=== PATIENT | female | born 1950 | race African-American/Black ===

== ENCOUNTER 2021-08-18 05:31 | Observation (INO) | payer OTHER ==
[2021-08-12 10:17] LABS: Absolute Lymphocytes (CBC) 2.3 K/uL (0.7-4.9); Hematocrit 39.8 % (36.0-45.0); Lymphocytes % 34.9 % (15.3-44.8); MPV 8.8 fL (7.6-11.3); RBC Red Blood Cell Count 4.78 M/uL (3.86-4.86)
[2021-08-12 10:20] LABS: Urine Appearance CLOUDY (Clear); Urine Bilirubin NEGATIVE (Negative); Urine Blood NEGATIVE (Negative); Urine Color YELLOW (Yellow); Urine Glucose NEGATIVE (Negative); Urine Microscopic Reflex ORDER UMIC; Urine Protein NEGATIVE (Negative); Urine Specific Gravity 1.015 (1.005-1.030)
[2021-08-12 10:35] LABS: Albumin 3.9 g/dL (3.4-5.0); Bilirubin Total 0.5 mg/dL (0.2-1.0); Potassium 3.1 mmol/L (3.5-5.1); Protein, Total 8.5 g/dL (6.4-8.2)
[2021-08-12 10:37] LABS: Protime INR 0.97
--- NOTE | 2021-08-12 10:42 | RAD REPORT ---
EXAM DESCRIPTION: Renaldo Hernandez (2 Views)08/12/2021 10:17 am CLINICAL HISTORY: Preop for hip surgery COMPARISON: None FINDINGS: The lungs appear clear of acute infiltrate. The heart is normal size IMPRESSION: No acute abnormalities displayed
[2021-08-12 10:47] LABS: Urine Bacteria 20-50 /HPF (<20); Urine RBC <5 /HPF (NONE SEEN)
[2021-08-18] MEDS ORDERED: CLINDAMYCIN 900MG/D5W 900 MG/50 ML IVPB IV ONE (05:55)
[2021-08-18] MEDS ORDERED: Ringers Lactate 1,000 ML IV ONE (05:55)
[2021-08-18] MEDS ORDERED: BUPIVACAINE 0.75% (PF) 2 ML SP ONE (06:20)
[2021-08-18] MEDS ORDERED: HYDROMORPHONE HCL 1 MG/ML INJ ONE (06:21)
[2021-08-18] MEDS ORDERED: FENTANYL CITR 100 MCG/2 ML ONE (06:24)
[2021-08-18] MEDS ORDERED: propofoL 200 MG/20 ML VIAL IV ONE ×2 (06:24→09:21)
[2021-08-18] MEDS ORDERED: MIDAZOLAM HCL 2 MG/2 ML INJ ONE (06:24)
[2021-08-18] MEDS ORDERED: LIDOCAINE 2% MPF 5 ML VIAL ONE (06:24)
[2021-08-18] MEDS ORDERED: LIDOCAINE 1% MPF 5 ML VIAL ONE (06:25)
[2021-08-18] MEDS ORDERED: EPINEPHRINE/PF 1 MG/ML AMP ONE (06:26)
[2021-08-18] MEDS ORDERED: KETAMINE HCL 500 MG/5 ML VIAL ONE (06:28)
[2021-08-18] MEDS ORDERED: NS 0.9% VIAL 10 ML ONE (06:28)
[2021-08-18] MEDS ORDERED: GABAPENTIN 100 MG CAP ONE (06:42)
[2021-08-18] MEDS ORDERED: ACETAMINOPHEN 500 MG TAB ONE (06:43)
[2021-08-18] MEDS ORDERED: Oxycodone HCl/Acetaminophen 1 TAB TAB ONE (06:43)
[2021-08-18] MEDS ORDERED: EPHEDRINE SULF 50 MG/ML VIAL ONE ×2 (07:24→08:55)
[2021-08-18] MEDS ORDERED: TRANEXAMIC ACID 1,000 MG/10 ML VIAL IV ONE (07:30)
[2021-08-18] MEDS ORDERED: Phenylephrine HCl 10 MG/ML 1 ML VIAL ONE (08:02)
[2021-08-18] MEDS ORDERED: ALBUMIN HUM 5% 250 ML IV ONE (08:27)
[2021-08-18] MEDS ORDERED: KETOROLAC 30 MG/ML INJ ONE (09:40)
--- NOTE | 2021-08-18 10:23 | P.BOP ---
Preoperative diagnosis: left hip severe arthritis Postoperative diagnosis: same Primary procedure: left total hip arthoplasty Estimated blood loss: 200 ccs Anesthesia: General Complications: None Transferred to: Recovery Room Condition: Good
[2021-08-18] MEDS ORDERED: ONDANSETRON 4 MG/2 ML VIAL IV PRN (10:43)
[2021-08-18] MEDS ORDERED: DOCUSATE NA 100 MG CAP PO PRN (10:43)
[2021-08-18] MEDS: MORPHINE 4 MG/ML SYR ONE ×2 (11:02→11:28)
[2021-08-18 11:03] LABS: Hematocrit 29.9 % (36.0-45.0)
--- NOTE | 2021-08-18 12:35 | RAD REPORT ---
EXAM DESCRIPTION: - Hip in OR Left 1 View - 08/18/2021 9:30 am FINDINGS: Single intraoperative cross-table view was submitted. Acetabular cup is in place. Rasp or trial prosthesis in place in the proximal femur. No suspicious or unexpected finding.
--- OUTSIDE RECORDS SUMMARY | 2021-08-18 12:49 | XMS REPORT | Continuity of Care Document ---
:1950 Author Organization [facility] t Address [address] [place] [address] [address] [place] [address] Care Team Providers Name Role Phone Unavailable Unavailable Unavailable Problems This patient has no known problems. Allergies, Adverse Reactions, Alerts This patient has no known allergies or adverse reactions. Medications This patient has no known medications. Procedures This patient has no known procedures. Encounters Start End Encounter Admission Attending Care Care Encounter Source Date/Time Date/Time Type Type Clinicians Facility Department ID 2021-08-12 Outpatient [facility] [id number] [facility] 07:57:03 [facility] Results This patient has no known results.
[2021-08-18 13:44] VITALS: BMI 42.0
[2021-08-18] MEDS: HYDROCODONE/APAP 7.5/325 MG TAB PO PRN ×2 (13:48→21:51)
[2021-08-18 17:05] LABS: Hematocrit 30.2 % (36.0-45.0)
--- NOTE | 2021-08-18 22:45 | OP ---
Date of Procedure: 08/18/2021 Surgeon: Wally Ho MD Preoperative Diagnosis: Severe left hip arthritis. Postoperative Diagnosis: Severe left hip arthritis. Procedure: Left total hip arthroplasty using the Jamal system. Estimated Blood Loss: 200 cc. Complications: No complications. Pathology Specimens: No pathology specimens sent. Indications For Operation: Ms. Sousa is a 71-year-old female who unfortunately has a BMI of 42 and holds a lot of this weight around her hips. She has had very bad arthritic changes on the right side in the past and underwent a total hip arthroplasty by me, which was somewhat challenging, but has thornton d excellent result at least several years ago. Unfortunately, her left side is really bothering her with significant degenerative arthritic changes and the patient requests additional be done. She do es know this is difficult because of her size. However, risks, benefits, and alternatives were discu ssed with the patient in detail. She says she understands things as presented and wishes to proceed. Description Of Procedure: The patient was taken to the operating room. She was placed on the operat ing table. A spinal was then performed by Anesthesia. She was then rolled right side down and her l eft lower extremity was then prepped and draped in usual sterile fashion for arthroplasty. Somewhat more extensile than normal. Incision was then made carefully through skin and fairly significant juaquin unt of adipose tissue. This was controlled using deep Gelpi's moistened laps as well as an Adson Bec kman. This lead down to the fascia. A small stab wound was made in the fascia, which palpates glute al tendon. This was then gently brought up to near the tip of the greater trochanter, it was then cu rved gently backward and the gluteus muscles were then divided using finger pressure. The deep Charn silvia was then placed and the external rotators and capsule were then taken down and tagged for later r epair. The hip was then dislocated and followed in standard fashion perhaps slightly shorter than no rmal neck cut to allow for better visualization. Acetabular retractors were placed with little diffi culty, however, care was taken to avoid too far posterior, too far anterior placement to avoid injury to neurovascular structures. The labrum was then removed. The head was measured to be a 44, beginn ing with size 41 reamer. This was somewhat difficult to get into the depth of the incision. However , it is accomplished. It was then sequentially reamed to a size of 45. This was analyzed carefully to ensure that there was bleeding bone and needing a 46 would have been somewhat difficult. Decision was made to go head and continue with the 46 cup, it was then placed in standard fashion. It appear s to have a good stability. Attention was then turned to the femur and the box printing machine operator was used to la teralize this followed by sequential broaching to a size 4. At this time, decision was made to proce ed with x-rays that were normal due to assess the position of the cup as well as size of the stem. T he cup appeared to be at least acceptable and the stem appeared to be appropriately sized. This next bigger size stem would be quite difficult. We decided to go with this. The broach was removed. Th e liner was placed and impacted into the acetabulum. Following this, the final stem was then placed to appropriate depth. It was then trialed, found to be stable with full flexion and adduction with i nternal rotation to at least 30 degrees, this was selected with a standard ball and the final ball wa s then affixed and gently tapped onto the taper, but it was then reduced ensuring there was no soft t issue in the acetabulum and it was then brought up to the same degrees being full flexion as well as internal rotation past midline as well as adduction past midline and internal rotation approximately 30 to 40 degrees before begins to sublux appears to be stable. Definitely, there was no Shuck and sh e comes to extension, feeling a little tight. The wound was then copiously irrigated using jet lavag e and the external rotators and capsule were then repaired back to greater trochanter using bone tunn els. The skin was irrigated and the fascia was closed in a watertight fashion using heavy Vicryl sut ures, this was followed by closure of skin with Vicryl, followed by jamel. She was then placed in Aquacel dressing, awakened, and taken to recovery in good condition. There were no complications. /MODL Voice ID: [id number] Report ID: [id number]
[2021-08-19] MEDS: HYDROCODONE/APAP 7.5/325 MG TAB PO PRN ×3 (04:29→14:25)
[2021-08-19 05:55] LABS: Hematocrit 27.6 % (36.0-45.0)
[2021-08-19] MEDS: ENOXAPARIN 40 MG/0.4 ML SQ SCH (09:32)
[2021-08-19] MEDS ORDERED: ACETAMINOPHEN 325 MG TABLET PO PRN (17:40)
[2021-08-20] MEDS: HYDROCODONE/APAP 7.5/325 MG TAB PO PRN ×2 (00:13→07:33)
[2021-08-20 02:25] VITALS: O2SAT 94
[2021-08-20 06:28] LABS: Hematocrit 29.5 % (36.0-45.0)
[2021-08-20] MEDS: ENOXAPARIN 40 MG/0.4 ML SQ SCH (09:27)
[2021-08-20 10:09] VITALS: BP 117/51; TEMP 99.5
--- NOTE | 2021-08-20 10:31 | P.DS ---
Discharge Date: 08/20/21 Disposition: ROUTINE DISCHARGE Discharge Condition: GOOD Reason for Admission: Left total hip replacement - Problems (1) S/P total left hip arthroplasty Current Visit: Yes Status: Acute (2) HTN (hypertension) Current Visit: Yes Status: Acute (3) DM2 (diabetes mellitus, type 2) Current Visit: Yes Status: Acute Brief History of Present Illness: Patient is a 71-year-old female who came to the hospital for total left hip arthroplasty. Patient has been having severe pain for quite a while. She was scheduled for outpatient hip replacement. Patient did well during the surgery and she will be admitted for observation. She still having quite a bit of pain. She does not feel like she is ready to go home today. We will arrange for home health. Plan on discharge today if pain more tolerable. Hospital Course: Patient has done well during hospital stay. Walking better. Pain controlled. Arrange for home health. Outpatient follow-up with orthopedic. Vital Signs/Physical Exam: Temp Pulse Resp BP Pulse Ox 99.5 F 92 H 18 117/51 L 96 08/20/21 08:00 08/20/21 08:00 08/20/21 08:33 08/20/21 08:00 08/20/21 08:33 General: Alert, In no apparent distress, Oriented x3 Laboratory Data at Discharge: WBC 6.5 K/uL (4.3-10.9) 08/12/21 10:00 Hgb 9.7 g/dL (12.0-15.0) L 08/20/21 06:08 Hct 29.5 % (36.0-45.0) L 08/20/21 06:08 Plt Count 241 K/uL (152-406) 08/12/21 10:00 PT 11.6 SECONDS (9.2-12.8) 08/12/21 10:00 INR 0.97 08/12/21 10:00 APTT 28.0 SECONDS (21.7-34.4) 08/12/21 10:00 Sodium 137 mmol/L (136-145) 08/12/21 10:00 Potassium 3.1 mmol/L (3.5-5.1) L 08/12/21 10:00 BUN 14 mg/dL (7-18) 08/12/21 10:00 Creatinine 1.10 mg/dL (0.55-1.3) 08/12/21 10:00 Glucose 110 mg/dL (74-106) H 08/12/21 10:00 Total Bilirubin 0.5 mg/dL (0.2-1.0) 08/12/21 10:00 AST 18 U/L (15-37) 08/12/21 10:00 ALT 23 U/L (12-78) 08/12/21 10:00 Alkaline Phosphatase 95 U/L (45-117) 08/12/21 10:00 Home Medications: Amlodipine [Norvasc*] 10 mg PO DAILY 08/12/21 Cholecalciferol (Vitamin D3) [Vitamin D 5,000 IU Cap*] 5,000 unit PO DAILY 08/12/21 Lovastatin 10 mg PO BEDTIME 08/12/21 Meloxicam [Mobic*] 7.5 mg PO DAILY 08/12/21 Metoprolol Tartrate [Lopressor] 100 mg PO BID 08/12/21 Turmeric Root Extract [Turmeric Curcumin] 500 mg PO DAILY 08/12/21 hydroCHLOROthiazide [Hydrochlorothiazide*] 12.5 mg PO DAILY 08/12/21 Hydrocodone 7.5/APAP 325 [[place] 7.5/325 mg*] 1 tab PO Q6HR #30 tab 08/20/21 Rivaroxaban [Xarelto] 10 mg PO DAILY #20 tablet 08/20/21 New Medications: Hydrocodone 7.5/APAP 325 [[place] 7.5/325 mg*] 1 tab PO Q6HR #30 tab Rivaroxaban [Xarelto] 10 mg PO DAILY #20 tablet Physician Discharge Instructions: -DC IV and DC home -Follow-up with PCP in 1 to 2 weeks -Follow-up with Ortho in 1 to 2 weeks -Please call Dr. Chakraborty at [phone] if any questions regarding hospital stay -Please call nursing station at [phone] if any nursing or medication quest ions -Return to the emergency room if symptoms worsen Diet: Regular Activity: Fall precautions Followup: Wally Ho MD [ACTIVE - CAN ADMIT] - (call for an apointment with ortho for follow up in 2 weeks.) Venkata Santos MD [Primary Care Provider] - Time spent managing pt's care (in minutes): 35
--- NOTE | 2021-08-20 10:31 | P.CNS ---
Date of Consult: 08/19/21 Reason for Consult: Medical management Requesting Physician: Wally Ho Chief Complaint: Left total hip replacement History of Present Illness: Patient is a 71-year-old female who came to the hospital for total left hip arthroplasty. Patient has been having severe pain for quite a while. She was scheduled for outpatient hip replacement. Patient did well during the surgery and she will be admitted for observation. She still having quite a bit of pain. She does not feel like she is ready to go home today. We will arrange for home health. Plan on discharge today if pain more tolerable. Allergies Penicillins Allergy (Verified 08/18/21 06:21) Anaphylaxis Sulfa (Sulfonamide Antibiotics) Allergy (Verified 08/18/21 06:21) Itching/Hives/Rash sulfamethoxazole [From Bactrim] Allergy (Verified 08/18/21 06:21) Itching/Hives/Rash trimethoprim [From Bactrim] Allergy (Verified 08/18/21 06:21) Itching/Hives/Rash Home Medications: Amlodipine [Norvasc*] 10 mg PO DAILY 08/12/21 Cholecalciferol (Vitamin D3) [Vitamin D 5,000 IU Cap*] 5,000 unit PO DAILY 08/12/21 Lovastatin 10 mg PO BEDTIME 08/12/21 Meloxicam [Mobic*] 7.5 mg PO DAILY 08/12/21 Metoprolol Tartrate [Lopressor] 100 mg PO BID 08/12/21 Turmeric Root Extract [Turmeric Curcumin] 500 mg PO DAILY 08/12/21 hydroCHLOROthiazide [Hydrochlorothiazide*] 12.5 mg PO DAILY 08/12/21 Hydrocodone 7.5/APAP 325 [[place] 7.5/325 mg*] 1 tab PO Q6HR #30 tab 08/20/21 Rivaroxaban [Xarelto] 10 mg PO DAILY #20 tablet 08/20/21 - Past Medical/Surgical History Diabetic: No -: hypertension -: arthritis -: mild sleep apnea -: right hip replacement -: Total abdominal hysterectomy - Family History Father Medical History: Hypertension, Stroke Mother Medical History: Stroke - Social History Smoking Status: Former smoker, Never smoker Alcohol use: No CD- Drugs: No Caffeine use: No Place of Residence: Home Review of Systems 10-point ROS is otherwise unremarkable Physical Examination Temp Pulse Resp BP Pulse Ox 99.5 F 92 H 18 117/51 L 96 08/20/21 08:00 08/20/21 08:00 08/20/21 08:33 08/20/21 08:00 08/20/21 08:33 General: Alert, In no apparent distress, Oriented x3 HEENT: Atraumatic, PERRLA, Mucous membr. moist/pink, EOMI, Sclerae nonicteric Neck: Supple, 2+ carotid pulse no bruit, No LAD, Without JVD or thyroid abnormality Respiratory: Clear to auscultation bilaterally, Normal air movement Cardiovascular: Regular rate/rhythm, Normal S1 S2 Gastrointestinal: Normal bowel sounds, Soft and benign, Non-distended, No tenderness Musculoskeletal: No clubbing, No swelling, Tenderness Integumentary: No rashes Neurological: Normal gait, Normal speech, Normal tone, Normal affect Lymphatics: No axilla or inguinal lymphadenopathy Laboratory Data (last 24 hrs) 08/20/21 06:08: Hgb 9.7 L, Hct 29.5 L - Problems (1) S/P total left hip arthroplasty Current Visit: Yes Status: Acute (2) HTN (hypertension) Current Visit: Yes Status: Acute (3) DM2 (diabetes mellitus, type 2) Current Visit: Yes Status: Acute Conclusions/ Impression: Plan: 1. Pain control 2. DVT prophylaxis 3. Physical therapy 4. Out of bed into a chair 5. Monitor hemodynamics closely 6. GI and DVT prophylaxis Critical Care: No Time Spent Managing Pts care (In Minutes): 45
== END 2021-08-20 12:29 | disposition home health service (06) ==
LOC: OR 05:31 → 2ND 12:46
PROVIDERS: ADMIT Orthopaedic Surgery; ATTEND Orthopaedic Surgery
PROC: 0SRB0JA Replacement of Left Hip Joint with Synthetic Substitute, Uncemented, Open Approach (ICD-10-PCS; principal; 2021-08-18 07:00)
DX: M16.12 Unilateral primary osteoarthritis, left hip (principal); I10 Essential (primary) hypertension; E11.9 Type 2 diabetes mellitus without complications; G47.33 Obstructive sleep apnea (adult) (pediatric); K21.9 Gastro-esophageal reflux disease without esophagitis; E66.9 Obesity, unspecified; Z68.41 Body mass index [BMI] 40.0-44.9, adult; Z99.81 Dependence on supplemental oxygen; Z79.01 Long term (current) use of anticoagulants; Z79.899 Other long term (current) drug therapy; Z88.0 Allergy status to penicillin; Z88.2 Allergy status to sulfonamides; Z96.641 Presence of right artificial hip joint; Z90.710 Acquired absence of both cervix and uterus; Z20.822 Contact with and (suspected) exposure to COVID-19; Z82.49 Family history of ischemic heart disease and other diseases of the circulatory system; Z82.3 Family history of stroke; Z80.9 Family history of malignant neoplasm, unspecified
CPT/HCPCS: 87088; 85025; 87086; 36415 ×3; 86900; 86850; 85610; 86901; 88304; 88311; 85730; 85018 ×4; 85014 ×4; 80053; 71046; 73501; 97110 ×2; 97116 ×4; 97161; 97530 ×5; 27130; U0002; U0003; J2704 ×2; J0171; J2370; J1650 ×2; J2250; J3010; P9045; J1170; J7120; J2405; G0379; G0378 ×3; 81003; 81015